=== PATIENT | male | born 1980 | race Caucasian/White ===

== ENCOUNTER 2017-04-15 21:13 | Emergency (ER) | payer BC ==
[2017-04-15] MEDS ORDERED: methylPREDNISolone Sodium Succinate 125 MG/2 ML SDV IVPUSH ONE (21:19)
[2017-04-15] MEDS ORDERED: Famotidine 20 MG/2 ML SDV IVPUSH ONE (22:30)
[2017-04-15] MEDS ORDERED: Sodium Chloride 0.9% 1,000 ML IV ONE (22:30)
[2017-04-15] MEDS ORDERED: diphenhydrAMINE 50 MG/ML SDV IVPUSH ONE (23:26)
--- NOTE | 2017-04-16 00:08 | EDM.PDOC ---
ED HPI GENERAL MEDICAL PROBLEM - General Chief Complaint: Allergic Reaction Stated Complaint: ALLERGIC REACTION TO BACTRUM [id number] Time Seen by Provider: 04/15/17 21:26 Source of Information: Reports: Patient, Family, RN, RN Notes Reviewed History Limitations: Reports: No Limitations - History of Present Illness INITIAL COMMENTS - FREE TEXT/NARRATIVE: Patient presents to ER with c/o a rash all over his body that itches. He states he was put on Bactrim last week for a wound on the left leg. He states he had taken the Bactrim for 5 days with the last dose of Bactrim being taken on Wednesday. He began with an allergic reaction on . He was seen at [facility] by Shruthi Perry today (04/15). He was given hydroxyzine. The rash has continuously gotten worse and he is very itchy. He states the swelling around his eyes has been increasingly worsening as well. 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 [No Known Home Meds] 04/15/17 [History] Past Medical History - Past Health History Medical/Surgical History: Denies Medical/Surgical History Musculoskeletal History: Reports: Fracture Neurological History: Reports: Concussion Dermatologic History: Reports: Cellulitis - Infectious Disease History Infectious Disease History: Reports: Chicken Pox Social & Family History - Family History Family Medical History: Noncontributory - Tobacco Use Smoking Status *Q: Never Smoker Second Hand Smoke Exposure: No - Caffeine Use Caffeine Use: Reports: Coffee - Recreational Drug Use Recreational Drug Use: No ED ROS ALLERGIC REACTION - Review of Systems Review Of Systems: ROS reveals no pertinent complaints other than HPI. ED EXAM GENERAL NO PERIP PULSE - Physical Exam Exam: See Below Exam Limited By: No Limitations General Appearance: Alert, WD/WN, No Apparent Distress Eye Exam: Bilateral Eye: Normal Inspection, PERRL Ears: Normal External Exam, Hearing Grossly Normal Nose: Normal Inspection Throat/Mouth: Normal Inspection, Normal Lips, Normal Teeth, Normal Gums, Normal Oropharynx, Normal Voice, No Airway Compromise Head: Atraumatic, Normocephalic Neck: Lymphadenopathy (L), Lymphadenopathy (R), Tender Lateral Respiratory/Chest: No Respiratory Distress, Lungs Clear, Normal Breath Sounds, No Accessory Muscle Use, Chest Non-Tender Cardiovascular: Normal Peripheral Pulses, Regular Rate, Rhythm, No Edema, No Gallop, No JVD, No Murmur, No Rub GI/Abdominal: Normal Bowel Sounds, Soft, Non-Tender, No Organomegaly, No Distention, No Abnormal Bruit, No Mass (Male) Exam: Deferred Rectal (Males) Exam: Deferred Back Exam: Normal Inspection, Full Range of Motion, NT Extremities: Normal Inspection, Normal Range of Motion, Non-Tender, Normal Capillary Refill, No Pedal Edema Neurological: Alert, Oriented, Normal Cognition, Normal Gait, No Motor/Sensory Deficits Psychiatric: Normal Affect, Normal Mood Skin Exam: No Rash, Erythema Lymphatic: Adenopathy (bilateral post cervical, occipital, retropharyngeal, submandibular, submental.) Course - Vital Signs Last Recorded V/S: Last Vital Signs Temp 98.6 F 04/15/17 23:35 Pulse 70 04/16/17 00:22 Resp 18 04/16/17 00:22 BP 130/78 04/16/17 00:22 Pulse Ox 97 04/16/17 00:22 - Orders/Labs/Meds Meds: Medications Discontinued Medications Generic Name Dose Route Start Last Admin Trade Name Freq PRN Reason Stop Dose Admin Diphenhydramine HCl 25 mg 04/15/17 23:26 04/15/17 23:31 Benadryl IVPUSH 04/15/17 23:27 25 mg ONETIME ONE Administration Famotidine 20 mg 04/15/17 22:30 04/15/17 22:40 Pepcid IVPUSH 04/15/17 22:31 20 mg ONETIME ONE Administration Sodium Chloride 1,000 mls @ 999 mls/hr 04/15/17 22:30 04/15/17 22:38 Normal Saline IV 04/15/17 23:30 999 mls/hr .BOLUS ONE Administration Methylprednisolone Sodium Succinate 125 mg 04/15/17 21:19 04/15/17 21:41 Solu-Medrol IVPUSH 04/15/17 21:20 125 mg ONETIME ONE Administration Departure - Departure Time of Disposition: 23:56 Disposition: Home, Self-Care 01 Condition: Fair Clinical Impression: Urticaria due to drug allergy [id number] Qualifiers: Encounter type: initial encounter Qualified Code(s): T78.3XXA - Angioneurotic edema, initial encounter - Discharge Information Referrals: PCP,Unobtain [Primary Care Provider] - Forms: ED Department Discharge Additional Instructions: Loratidine 10mg orally once daily. Benadryl 25mg-50mg orally every 4-6 hours as needed. Pepcid 20mg orally twice daily for 5-7 days. Prednisone 40mg orally once daily for 5 days. Drink plenty of fluids. Follow up with your primary care facility tomorrow.
[2017-04-16 00:34] VITALS: BP 130/78
== END 2017-04-16 00:24 | disposition home or self-care (01) ==
LOC: DL.ED 21:13
DX: T78.3XXA Angioneurotic edema, initial encounter (principal); T37.0X5A Adverse effect of sulfonamides, initial encounter; Z88.2 Allergy status to sulfonamides; Z88.8 Allergy status to other drugs, medicaments and biological substances
CPT/HCPCS: 96361; 96374; 96375; 99284; J1200; J2930; J7030; S0028

== ENCOUNTER 2018-10-10 00:59 | Emergency (ER) | payer BC ==
[2018-10-10 01:05] VITALS: BP 143/103
[2018-10-10] MEDS ORDERED: GI Cocktail Oral Solution 30 ML PO ONE (01:06)
--- NOTE | 2018-10-10 01:09 | EDM.PDOC ---
ED HPI GENERAL MEDICAL PROBLEM - General Chief Complaint: Chest Pain Stated Complaint: CHEST PAIN/THRAOT PAIN [id number] Time Seen by Provider: 10/10/18 01:06 Source of Information: Reports: Patient History Limitations: Reports: No Limitations - History of Present Illness INITIAL COMMENTS - FREE TEXT/NARRATIVE: woke up with heartburn in mid chest area, took few TUMS but not helping ate [employer] burger for dinner. denies prior h/o problems. took BP and bottom number was 115. 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: Other (see below) Other Treatments DOT COMPLIANCE MANAGER: TUMS Epigastric Pain Score (Numeric/FACES): 10 - Related Data Allergies Allergy/AdvReac Type Severity Reaction Status Date / Time sulfamethoxazole Allergy Hives Verified 10/10/18 01:06 [From Bactrim] trimethoprim [From Bactrim] Allergy Hives Verified 10/10/18 01:06 Home Meds: Home Meds Calcium Carbonate [Tums] 300 mg PO Q6HR PRN 10/10/18 [History] Ibuprofen 600 mg PO Q6HR PRN 10/10/18 [History] Past Medical History - Past Health History Medical/Surgical History: Denies Medical/Surgical History Musculoskeletal History: Reports: Fracture Neurological History: Reports: Concussion Dermatologic History: Reports: Cellulitis - Infectious Disease History Infectious Disease History: Reports: Chicken Pox Social & Family History - Family History Family Medical History: Noncontributory - Caffeine Use Caffeine Use: Reports: Coffee ED ROS GENERAL - Review of Systems Review Of Systems: ROS reveals no pertinent complaints other than HPI. ED EXAM, GENERAL - Physical Exam Exam: See Below Exam Limited By: No Limitations General Appearance: Alert, WD/WN, Anxious, Mild Distress, Other (discomfort) Ears: Hearing Grossly Normal Throat/Mouth: Normal Voice, No Airway Compromise Head: Atraumatic Neck: Non-Tender, Full Range of Motion Respiratory/Chest: No Respiratory Distress Cardiovascular: Regular Rate, Rhythm GI/Abdominal: Soft, Non-Tender Neurological: Alert, Oriented, Normal Cognition, Normal Gait, No Motor/Sensory Deficits Psychiatric: Anxious Skin Exam: Warm, Dry, Normal Color Lymphatic: No Adenopathy Course - Vital Signs Last Recorded V/S: Last Vital Signs Temp 36.5 C 10/10/18 01:02 Pulse 78 10/10/18 01:02 Resp 18 10/10/18 01:02 BP 143/103 H 10/10/18 01:02 Pulse Ox 99 10/10/18 01:02 - Orders/Labs/Meds Orders: Active Orders 24 hr Category Date Time Status EKG 12 Lead [EKG Documentation Completion] [RC] STAT Care 10/10/18 01:05 Active Labs: Laboratory Tests 10/10/18 10/10/18 10/10/18 Range/Units 01:15 01:15 01:15 WBC 7.1 (5.0-10.0) 10^3/uL RBC 5.34 (4.6-6.2) 10^6/uL Hgb 15.6 (14.0-18.0) g/dL Hct 44.7 (40.0-54.0) % MCV 83.7 (80-100) fL MCH 29.2 (27.0-34.0) pg MCHC 34.9 (33.0-35.0) g/dL Plt Count 249 (150-450) 10^3/uL Neut % (Auto) 35.4 L (42.2-75.2) % Lymph % (Auto) 51.8 H (20.5-50.1) % [place] % (Auto) 9.7 H (2-8) % Eos % (Auto) 3.0 (1.0-3.0) % Baso % (Auto) 0.1 (0.0-1.0) % D-Dimer, Quantitative < 100 (0-400) ng/mL Sodium 136 (135-145) mmol/L Potassium 3.8 (3.6-5.0) mmol/L Chloride 102 (101-111) mmol/L Carbon Dioxide 23.0 (21.0-31.0) mmol/L Anion Gap 14.8 BUN 22 H (7-18) mg/dL Creatinine 0.9 (0.6-1.3) mg/dL Est Cr Clr Drug Dosing 112.38 mL/min Estimated GFR (MDRD) > 60 BUN/Creatinine Ratio 24.44 Glucose 100 (74-105) mg/dL Calcium 9.2 (8.4-10.2) mg/dl Total Bilirubin 0.9 (0.2-1.0) mg/dL AST 27 (10-42) IU/L ALT 17 (10-60) IU/L Alkaline Phosphatase 51 (42-121) IU/L Troponin I < 0.02 (0.00-0.02) ng/ml Total Protein 7.6 (6.7-8.2) g/dl Albumin 4.4 (3.2-5.5) g/dl Globulin 3.2 Albumin/Globulin Ratio 1.38 Meds: Medications Discontinued Medications Generic Name Dose Route Start Last Admin Trade Name Freq PRN Reason Stop Dose Admin Al Hydroxide/Mg Hydroxide 30 ml 10/10/18 01:06 10/10/18 01:19 Gi Cocktail PO 10/10/18 01:07 30 ml ONETIME ONE Administration - Re-Assessments/Exams Free Text/Narrative Re-Assessment/Exam: 10/10/18 01:49 s/p GI cocktail = pain gone 10/10/18 02:03 results discussed with pt who remains pain free. Departure - Departure Time of Disposition: 02:03 Disposition: Home, Self-Care 01 Condition: Good Clinical Impression: GERD with esophagitis Instructions: Food Choices for Gastroesophageal Reflux Disease, Adult Forms: ED Department Discharge Additional Instructions: 1) follow up with family doctor 2) recheck if there is any change or concern - My Orders Last 24 Hours: My Active Orders 10/10/18 01:05 EKG 12 Lead [EKG Documentation Completion] [RC] STAT - Assessment/Plan Last 24 Hours: My Active Orders 10/10/18 01:05 EKG 12 Lead [EKG Documentation Completion] [RC] STAT
[2018-10-10 01:43] LABS: ANION GAP 14.8; CHLORIDE,CL 102 mmol/L (101-111); SODIUM,NA 136 mmol/L (135-145)
== END 2018-10-10 02:05 | disposition home or self-care (01) ==
LOC: DL.ED 00:59
DX: K21.0 Gastro-esophageal reflux disease with esophagitis (principal); Z88.2 Allergy status to sulfonamides
CPT/HCPCS: 36415; 80053; 84484; 85025; 85379; 93005; 99285; A9270